=== PATIENT | female | born 1955 | race African-American/Black ===

== ENCOUNTER → 2017-06-20 | Outpatient (CLI) | payer BC ==
--- NOTE | 2017-06-20 17:00 | RAD ---
Thyroid ultrasound, 06/20/2017: History: Neck swelling The right lobe of the gland measures 5.4 x 1.9 x 2.0 cm while the left lobe of the gland measures 4.9 x 1.8 x 2.0 cm. There is a small 7 mm nodule within the right side of the isthmus. Its margins are smooth. It is wider than tall. It contains hypoechoic and medium echogenicity components. There is a second smaller 5 mm nodule identified more medially toward the midline in the isthmus, demonstrating similar sonographic characteristics. No other discrete thyroid nodule is seen. IMPRESSION: Two small complex thyroid nodules are noted as described above. Their sonographic characteristics are nonspecific, however, no highly suspicious features are seen to warrant biopsy at this time.
== END | disposition home or self-care (01) ==
LOC: US 15:34
PROVIDERS: ATTEND Family Medicine
DX: R22.1 Localized swelling, mass and lump, neck (principal)
CPT/HCPCS: 76536

== ENCOUNTER → 2019-02-04 | Outpatient (CLI) | payer BC, MEDICARE ==
[2019-02-04 12:19] LABS: HEMATOCRIT 39.1 % (36.0-47.0); HEMOGLOBIN 13.1 g/dL (12.0-15.5); RED BLOOD COUNT 4.56 x10^6/uL (3.50-5.40); RED CELL DISTRIBUTION WIDTH 13.5 % (11.5-14.5); WHITE BLOOD COUNT 7.7 x10^3/uL (4.0-11.0)
[2019-02-04 12:39] LABS: CALCIUM 9.1 mg/dL (8.5-10.1); CREATININE 0.9 mg/dL (0.6-1.0); POTASSIUM 4.1 mmol/L (3.5-5.1)
[2019-02-04 12:41] LABS: CHOLESTEROL/HDL RATIO 3.1
== END | disposition home or self-care (01) ==
LOC: LAB 11:29
PROVIDERS: ATTEND Family Medicine
DX: Z00.00 Encounter for general adult medical examination without abnormal findings (principal); E66.3 Overweight; D50.9 Iron deficiency anemia, unspecified
CPT/HCPCS: 36415; 80048; 80061; 84443; 85027

== ENCOUNTER → 2019-12-23 | Outpatient (CLI) | payer BC, MEDICARE ==
[2019-12-23 08:09] LABS: BASO # 0.1 x10^3/uL (0.0-0.2); BASO % 1 % (0-3); EOS # 0.1 x10^3/uL (0.0-0.7); EOS % 2 % (0-3); HEMATOCRIT 38.7 % (36.0-47.0); HEMOGLOBIN 12.9 g/dL (12.0-15.5); LYMPH # 2.1 x10^3/uL (1.0-4.8); LYMPH % 36 % (24-48); MEAN CORPUSCULAR HEMOGLOBIN 29 pg (25-35); MEAN CORPUSCULAR HGB CONC 33 g/dL (31-37); MEAN CORPUSCULAR VOLUME 86 fL (79-100); MONO # 0.5 x10^3/uL (0.0-1.1); MONO % 9 % (0-9); NEUT % 51 % (31-73); PLATELET COUNT 323 x10^3/uL (140-400); RED BLOOD COUNT 4.51 x10^6/uL (3.50-5.40); RED CELL DISTRIBUTION WIDTH 13.7 % (11.5-14.5); WHITE BLOOD COUNT 5.8 x10^3/uL (4.0-11.0)
[2019-12-23 08:33] LABS: ALBUMIN 3.5 g/dL (3.4-5.0); ALBUMIN/GLOBULIN RATIO 0.8 (1.0-1.7); CALCIUM 9.1 mg/dL (8.5-10.1); CREATININE 0.9 mg/dL (0.6-1.0); GFR 75.8; POTASSIUM 3.7 mmol/L (3.5-5.1); TOTAL BILIRUBIN 0.3 mg/dL (0.2-1.0); TOTAL PROTEIN 8.1 g/dL (6.4-8.2)
[2019-12-23 08:36] LABS: CHOLESTEROL/HDL RATIO 3.2
--- NOTE | 2019-12-23 17:21 | RAD ---
EXAM: BILATERAL DIGITAL 3D SCREENING MAMMOGRAPHY. HISTORY: Routine mammographic screening. TECHNIQUE: Bilateral digital 3D and tomographic images were obtained in CC and MLO projections, with and without implant displacement. Computer-aided detection was applied. COMPARISON: 11/17/2008. COMPOSITION: B. There are scattered areas of fibroglandular density. FINDINGS: Bilateral subpectoral implants appear intact. A lobulated nodule at the left 6:00 position is best seen on tomographic images. See annotations. Scattered calcifications on the right appear benign. There is no suspicious finding on the right. BI-RADS CATEGORY 0: Incomplete--Needs Additional Imaging Evaluation. RECOMMENDATION: 1. Spot compression and sonography of the lobulated nodule at the left 6:00 position. Electronically signed by: Marnie Eli MD (12/23/2019 5:18 PM) [id number]
== END | disposition home or self-care (01) ==
LOC: MAMMO 07:43
PROVIDERS: ATTEND Family Medicine
DX: Z12.31 Encounter for screening mammogram for malignant neoplasm of breast (principal); N63.24 Unspecified lump in the left breast, lower inner quadrant; Z98.82 Breast implant status
CPT/HCPCS: 36415; 77063; 77067; 80053; 80061; 85025

== ENCOUNTER → 2020-01-20 | Outpatient (CLI) | payer BC, MEDICARE ==
--- NOTE | 2020-01-20 10:12 | RAD ---
Examination: Limited left breast ultrasound. INDICATION: Screening recall for left breast nodule. COMPARISON: Screening mammograms of 12/23/2019 and 11/17/2008 FINDINGS: Targeted ultrasound of the inferior left breast identifies at the 6:00 position 5 cm from the nipple a bilobed parallel orientation circumscribed hypoechoic nodule with low level internal echoes and no internal vascularity measuring 9 x 5 mm. This corresponds with the mammographic finding recalled from screening and is sonographically benign. Subpectoral saline implant is again evident. IMPRESSION: Benign fibrocystic change in the inferior left breast on ultrasound likely corresponds with nodularity seen on mammography. No evidence of malignancy. Recommend return to routine mammographic screening next due in one year. BI-RADS Category 2 Benign findings Patient entered into a reminder system with target due date for next mammogram. BI-RADS 2 -- benign findings
== END | disposition home or self-care (01) ==
LOC: MAMMO 09:03
PROVIDERS: ATTEND Family Medicine
DX: N60.12 Diffuse cystic mastopathy of left breast (principal)
CPT/HCPCS: 76641